=== PATIENT | female | born 1945 | race Caucasian/White ===

== ENCOUNTER 2025-05-27 13:24 | Day surgery (SDC) | payer MEDICARE, OTHER ==
[2025-05-27] MEDS ORDERED: methylPREDNISolone acetate IM ONE (13:25)
[2025-05-27] MEDS ORDERED: BUPIVACAINE 0.5% VIAL IJ ONE (13:25)
[2025-05-27] MEDS ORDERED: propofoL IV ONE (15:27)
--- NOTE | 2025-05-27 16:54 | XRAY ---
Indication: Left left shoulder and biceps tendon sheath injection. Intraoperative fluoroscopy provided for 11 seconds. 2 digital spot image submitted for interpretation demonstrates needle tip projecting over left glenohumeral joint superiorly. Second needle tip projects over mid humeral head. Small amount of contrast injected for needle tip placement. Correlate with intraoperative findings/report.
[2025-05-27] MEDS ORDERED: Lactated Ringers 1,000 ML IV ONE (17:54)
--- NOTE | 2025-05-27 19:13 | XRAY ---
11 seconds of fluoroscopy were used in surgery for a left intra-articular shoulder injection.
== END 2025-05-27 16:02 | disposition home or self-care (01) ==
LOC: SDC-PAIN 13:24
PROVIDERS: ATTEND Psychiatry & Neurology Pain Medicine
DX: M19.012 Primary osteoarthritis, left shoulder (principal); M75.22 Bicipital tendinitis, left shoulder